=== PATIENT | male | born 1995 | race Caucasian/White ===

== ENCOUNTER 2018-06-25 11:40 | Emergency (ER) | payer BC ==
[~2018-06-25] VITALS: Ht 172.7 cm; Wt 68.0 kg
[2018-06-25 13:10] VITALS: BP 150/57
== END 2018-06-25 14:33 | disposition home or self-care (01) ==
LOC: ER 11:40
DX: S46.911A Strain of unspecified muscle, fascia and tendon at shoulder and upper arm level, right arm, initial encounter (principal); V00.131A Fall from skateboard, initial encounter; Y93.51 Activity, roller skating (inline) and skateboarding; Y99.8 Other external cause status; Y92.89 Other specified places as the place of occurrence of the external cause
CPT/HCPCS: 73060; 73080